=== PATIENT | male | born 1950 | race Caucasian/White ===

== ENCOUNTER 2018-05-08 15:57 | Emergency (ER) | payer MEDICARE, MEDICAID ==
[~2018-05-08] VITALS: Ht 170.2 cm; Wt 66.0 kg
[2018-05-08 16:00] VITALS: BP 173/85
--- NOTE | 2018-05-08 16:14 | NUR ---
PT BIB [facility] FROM [facility]. PT HAD A GLF AND FELL TO HIS KNEES. PT DID NOT HIT HIS HEAD OR HAVE LOC. PT DENIES HAVING ANY SYMPTOMS. PT HAS HAD 1 BEER TODAY AND NEEDS A PLACE TO LIVE. FS: 108, BP: 170/90, HR 110, O2 SAT 100%. PT HAS A HISTORY OF HTN, HIGH CHOLESTEROL, AND STROKE WITH NO DEFFICITS. PT IS ALERT, ORIENTED, WITH NAD. PT IS CONNECTED TO THE MONITOR. CALL LIGHT WITHIN REACH. PA AT BEDSIDE.
[2018-05-08] MEDS ORDERED: SIMV40TA3 PO (16:17)
[2018-05-08] MEDS ORDERED: METO25TA35 PO (16:17)
[2018-05-08] MEDS ORDERED: AMLO10TA8 PO (16:17)
[2018-05-08] MEDS ORDERED: LISI-170 PO (16:17)
[2018-05-08] MEDS ORDERED: SERT50TA28 PO (16:17)
--- NOTE | 2018-05-08 17:06 | NUR ---
Patient given discharge instructions and they have confirmed that they understand the instructions. Patient ambulatory with steady gait.
[2018-05-09] MEDS ORDERED: CLOP75TA52 PO (16:00)
[2018-05-13] MEDS ORDERED: THIA100T27 PO (14:37)
[2018-05-13] MEDS ORDERED: MULT-730 PO (14:37)
[2018-05-13] MEDS ORDERED: ERGO500017 PO (14:43)
== END 2018-05-08 17:08 | disposition home or self-care (01) ==
LOC: ED 16:41
DX: F10.120 Alcohol abuse with intoxication, uncomplicated (principal); E78.00 Pure hypercholesterolemia, unspecified; I25.2 Old myocardial infarction; I10 Essential (primary) hypertension
CPT/HCPCS: 99283

== ENCOUNTER 2018-06-07 18:08 | Emergency (ER) | payer MEDICARE, MEDICAID ==
[~2018-06-07] VITALS: Ht 170.2 cm; Wt 75.0 kg
[~2018-06-07 18:08] MED LIST: AMLO10TA8 PO; CLOP75TA52 PO; ERGO500017 PO; LISI-170 PO; METO25TA35 PO; MULT-730 PO; SERT50TA28 PO; SIMV40TA3 PO; THIA100T27 PO
--- NOTE | 2018-06-07 18:25 | NUR ---
pt malik, report received from [facility]. diarrhea x 1 month; seen here and [facility] since onset. pt is nonambulatory at baseline. pt denies pain. denies hematochezia. pt attached to spo2/bp monitors. special contact precautions in place. awaiting MD and orders at this time. Addendum: 06/07/18 at 1834 by JOSH pt malik, report received from [facility]. diarrhea and generalized abd pain x 1 month; seen here and [facility] since onset. pt is nonambulatory at baseline. pt denies pain at this time. denies hematochezia. pt attached to spo2/bp monitors. special contact precautions in place. awaiting MD and orders at this time.
[2018-06-07 18:43] LABS: BASOPHILS # (AUTO) 0.06 x10^3/uL (0-0.1); BASOPHILS % (AUTO) 1 % (0-1); EOSINOPHILS # (AUTO) 0.03 x10^3/uL (0-0.4); EOSINOPHILS % (AUTO) 0 % (1-7); LYMPHOCYTES # (AUTO) 0.56 x10^3/uL (1-3.4); LYMPHOCYTES % (AUTO) 5 % (22-44); MD NO; MEAN CORPUSCULAR HGB CONC 34.2 g/dL (33.2-36.2); MEAN CORPUSCULAR VOLUME 96.5 fL (81-97); MEAN PLATELET VOLUME 7.6 fL (7.4-10.4); MONOCYTES % (AUTO) 5 % (2-9); NEUTROPHILS # (AUTO) 9.62 x10^3/uL (1.8-6.8); NEUTROPHILS % (AUTO) 89 % (42-75); PLATELET COUNT 394 x10^3/uL (130-400); RED BLOOD COUNT 3.17 x10^6/uL (4.38-5.82); RED CELL DISTRIBUTION WIDTH 13.8 % (9.4-14.8)
--- NOTE | 2018-06-07 18:43 | NUR ---
pt unable to recall home meds for med rec at this time
[2018-06-07 18:55] LABS: ALANINE AMINOTRANSFERASE 18 U/L (12-78); ALBUMIN 3.1 g/dL (3.4-5.0); ANION GAP 6 mmol/L (5-15); CALCIUM 8.7 mg/dL (8.5-10.1); CHLORIDE 103 mmol/L (98-107); CREATININE 1.84 mg/dL (0.7-1.3)
[2018-06-07 18:57] LABS: ALKALINE PHOSPHATASE 75 U/L (45-117); BILIRUBIN,TOTAL 0.4 mg/dL (0.2-1.0); TOTAL PROTEIN 7.1 g/dL (6.4-8.2)
--- NOTE | 2018-06-07 18:59 | NUR ---
report to HOWARD Calle
--- NOTE | 2018-06-07 19:38 | NUR ---
report taken from emmanuel danielle.
[2018-06-07 20:02] VITALS: BP 136/78
--- NOTE | 2018-06-07 20:16 | NUR ---
pt given dc instructions and taxi voucher. pt discharged in own wheelchair, wheelchair cab called to collect pt. pt a&o, resps even and unlabored, nadn at in. the patient did not have any bm during this visit.
== END 2018-06-07 20:17 | disposition home or self-care (01) ==
LOC: ED 18:55
DX: R19.7 Diarrhea, unspecified (principal); E78.00 Pure hypercholesterolemia, unspecified; I25.2 Old myocardial infarction; I10 Essential (primary) hypertension
CPT/HCPCS: 36415; 74021; 80053; 83690; 85025; 99284

== ENCOUNTER 2018-06-11 14:51 | Emergency (ER) | payer MEDICARE, MEDICAID ==
[~2018-06-11] VITALS: Ht 170.2 cm; Wt 60.0 kg
[2018-06-11 15:42] LABS: BASOPHILS # (AUTO) 0.06 x10^3/uL (0-0.1); BASOPHILS % (AUTO) 1 % (0-1); EOSINOPHILS # (AUTO) 0.04 x10^3/uL (0-0.4); EOSINOPHILS % (AUTO) 1 % (1-7); LYMPHOCYTES % (AUTO) 9 % (22-44); MD NO; MEAN CORPUSCULAR HEMOGLOBIN 31.9 pg (27.5-34.5); MEAN CORPUSCULAR HGB CONC 33.2 g/dL (33.2-36.2); MEAN CORPUSCULAR VOLUME 96.1 fL (81-97); MEAN PLATELET VOLUME 7.8 fL (7.4-10.4); MONOCYTES # (AUTO) 0.66 x10^3/uL (0.2-0.8); MONOCYTES % (AUTO) 8 % (2-9); NEUTROPHILS # (AUTO) 6.54 x10^3/uL (1.8-6.8); NEUTROPHILS % (AUTO) 82 % (42-75); PLATELET COUNT 359 x10^3/uL (130-400); RED BLOOD COUNT 3.19 x10^6/uL (4.38-5.82); RED CELL DISTRIBUTION WIDTH 13.9 % (9.4-14.8)
[2018-06-11 15:50] LABS: ALBUMIN 3.1 g/dL (3.4-5.0); ANION GAP 9 mmol/L (5-15); CALCIUM 8.4 mg/dL (8.5-10.1); CHLORIDE 100 mmol/L (98-107)
[2018-06-11 15:57] LABS: ALANINE AMINOTRANSFERASE 15 U/L (12-78); ALKALINE PHOSPHATASE 77 U/L (45-117); BILIRUBIN,TOTAL 0.7 mg/dL (0.2-1.0); CREATININE 1.62 mg/dL (0.7-1.3); TOTAL PROTEIN 7.2 g/dL (6.4-8.2); TROPONIN I < 0.015 ng/mL (0.000-0.045)
--- NOTE | 2018-06-11 17:33 | NUR ---
FROM LOBBY TO ROOM AT THIS TIME
--- NOTE | 2018-06-11 19:11 | NUR ---
RESTING BED COMFORTABLY. GIVEN ADDITIONAL BLANKET AND WATER/CRACKERS. ASKING FOR "HOT FOOD AND CAN YOU JUST KEEP ME SO I CAN REST ENOUGH TO CATCH MY BREATH." PROVIDER MADE AWARE
[2018-06-11 19:22] LABS: HCT (SEDRATE) 29.8 % (39.2-51.8)
--- NOTE | 2018-06-11 21:19 | NUR ---
[employer] PROVIDED TO [address]
[2018-06-11 21:25] VITALS: BP 154/73
== END 2018-06-11 21:28 | disposition home or self-care (01) ==
LOC: ED 20:56
DX: M48.54XA Collapsed vertebra, not elsewhere classified, thoracic region, initial encounter for fracture (principal); M54.5 Low back pain; N18.9 Chronic kidney disease, unspecified; M79.604 Pain in right leg; E78.00 Pure hypercholesterolemia, unspecified; I25.2 Old myocardial infarction; I12.9 Hypertensive chronic kidney disease with stage 1 through stage 4 chronic kidney disease, or unspecified chronic kidney disease
CPT/HCPCS: 36415; 71045; 72072; 72110; 72128; 72131; 80053; 83880; 84484; 85025; 85651; 86140; 86141; 93005; 99284

== ENCOUNTER 2018-07-11 15:44 | Inpatient (IN) | payer MEDICARE, MEDICAID ==
[~2018-07-11] VITALS: Ht 170.2 cm; Wt 63.4 kg
--- NOTE | 2018-07-11 15:54 | NUR ---
no answer x 1
[2018-07-11] MEDS ORDERED: AMLO-150 PO (16:13)
[2018-07-11] MEDS ORDERED: SIMV5TAB14 PO (16:13)
--- NOTE | 2018-07-11 16:23 | NUR ---
PT'S BELONGINGS BY BEDSIDE: OWN WHEELCHAIR AND BAGS WITH CLOTHES.
--- NOTE | 2018-07-11 16:51 | NUR ---
PT INCONTINENT OF URINE AND BOWEL. RN CHANGED PAD UNDER PT.
--- NOTE | 2018-07-11 17:08 | NUR ---
ERMD AT BEDSIDE.
[2018-07-11] MEDS ORDERED: SODIUM CHLORIDE FLUSH 10ML SYR IVF ONE (17:30)
[2018-07-11] MEDS ORDERED: SODIUM CHLORIDE 0.9% 1,000ML IVBOLUS ONE (17:30)
--- NOTE | 2018-07-11 17:30 | NUR ---
LAB AT BEDSIDE OBTAINING BLOOD.
[2018-07-11 17:48] LABS: BASOPHILS # (AUTO) 0.04 x10^3/uL (0-0.1); BASOPHILS % (AUTO) 1 % (0-1); EOSINOPHILS % (AUTO) 0 % (1-7); LYMPHOCYTES # (AUTO) 0.44 x10^3/uL (1-3.4); LYMPHOCYTES % (AUTO) 5 % (22-44); MD NO; MEAN CORPUSCULAR HEMOGLOBIN 31.8 pg (27.5-34.5); MEAN CORPUSCULAR HGB CONC 34.1 g/dL (33.2-36.2); MEAN CORPUSCULAR VOLUME 93.2 fL (81-97); MEAN PLATELET VOLUME 8.2 fL (7.4-10.4); MONOCYTES # (AUTO) 0.58 x10^3/uL (0.2-0.8); MONOCYTES % (AUTO) 7 % (2-9); NEUTROPHILS # (AUTO) 7.75 x10^3/uL (1.8-6.8); NEUTROPHILS % (AUTO) 88 % (42-75); PLATELET COUNT 181 x10^3/uL (130-400); RED BLOOD COUNT 3.14 x10^6/uL (4.38-5.82); RED CELL DISTRIBUTION WIDTH 13.9 % (9.4-14.8)
[2018-07-11 17:49] LABS: INTERNATIONAL NORMALIZED RATIO 0.98 (0.93-1.1); PROTHROMBIN TIME 10.3 Seconds (9.6-11.5)
[2018-07-11 17:51] LABS: ALANINE AMINOTRANSFERASE 14 U/L (12-78); ALBUMIN 2.7 g/dL (3.4-5.0); ANION GAP 6 mmol/L (5-15); CALCIUM 8.2 mg/dL (8.5-10.1); CHLORIDE 102 mmol/L (98-107); CREATININE 1.85 mg/dL (0.7-1.3)
[2018-07-11 17:54] LABS: ALKALINE PHOSPHATASE 75 U/L (45-117); BILIRUBIN,TOTAL 1.5 mg/dL (0.2-1.0); TOTAL PROTEIN 6.5 g/dL (6.4-8.2)
[2018-07-11] MEDS ORDERED: PIPERACILLIN/TAZO/PMX 3.375GM 50 ML ONE (17:54)
[2018-07-11] MEDS ORDERED: PIPERACILLIN/TAZO/PMX 3.375GM 50 ML IV ONE (18:00)
--- NOTE | 2018-07-11 18:03 | NUR ---
OKAY BY [facility] TO PROVIDE PT WITH PO FLUIDS. JUICE WAS PROVIDED PER REQUEST. RN ADMINISTERED ABX PER EMAR. / BLOOD CULTURES WERE OBTAINED. CONTINOUS VITAL SIGN MONITORING. AWAITING URINE SAMPLE. NO OTHER NEEDS AT THIS TIME. RN TO CONTINUE TO MONITOR.
--- NOTE | 2018-07-11 18:25 | NUR ---
PT ASLEEP ON [facility].
--- NOTE | 2018-07-11 18:48 | NUR ---
PT ABLE TO PROVIDE RN WITH A URINE SAMPLE. COLLECTED AND SENT TO LAB. ADDITIONAL WARM BLANKETS PROVIDED TO PT. AWAITING NOC RN FOR SHIFT REPORT.
--- NOTE | 2018-07-11 18:57 | NUR ---
REPORT TO HOWARD FLOR.
--- NOTE | 2018-07-11 19:00 | NUR ---
RECEIVED BS REPORT FROM HOWARD NAVA TO ASSUME PT. CARE. PT. RESTING ON GURNEY WITH NADN. ALL MONITORS IN PLACE. CALL LIGHT IN REACH. AWAITING DISPO.
[2018-07-11 19:04] LABS: MICROSCOPIC AUTO
[2018-07-11 19:07] LABS: CULTURE INDICATED? NO
--- NOTE | 2018-07-11 19:49 | NUR ---
DR. JIMENEZ AT TO COLLECT FLU SWAB AND DISCUSS FURTHER POC WITH PT.
--- NOTE | 2018-07-11 19:59 | NUR ---
[facility] IN TO EVAL PT. FOR ADMISSION.
[2018-07-11 20:23] LABS: RAPID INFLUENZA A Negative (Negative); RAPID INFLUENZA B Negative (Negative)
--- NOTE | 2018-07-11 20:35 | NUR ---
PT. CONTINUES RESTING ON [employer] WITH NADN. TV ON. VS UPDATED. ALL MONITORS IN PLACE. CALL LIGHT.
--- NOTE | 2018-07-11 21:09 | NUR ---
REPORT TO HOWARD MONTENEGRO TO ASSUME PT. CARE.
[2018-07-11 22:00] VITALS: BP 172/90
[2018-07-12 01:34] VITALS: BP 152/78
[2018-07-12] MEDS ORDERED: LABETALOL 5MG/ML, 20ML IVPush PRN (02:00)
[2018-07-12] MEDS ORDERED: CIPROFLOXACIN/PMX 400MG/200ML 200 ML IVPB SCH (02:00)
[2018-07-12] MEDS ORDERED: ZOSYN PER PHARMACY MC PRN (02:00)
[2018-07-12] MEDS ORDERED: ONDANSETRON 2MG/ML, 2ML IVPush PRN (02:00)
[2018-07-12] MEDS ORDERED: PHARMACY MAY ADJ FOR RENAL FX MC PRN (02:00)
[2018-07-12] MEDS: HEPARIN 5,000 UNITS/ML, 1ML SQ SCH ×3 (02:49→18:10)
[2018-07-12] MEDS: PIPERACILLIN/TAZO/PMX 3.375GM 50 ML IV SCH ×4 (04:09→21:17)
[2018-07-12] MEDS: POTASSIUM CHLORIDE 20 MEQ, MAGNESIUM SULFATE 2 GM, THIAMINE 200 MG, MVI ADULT 10 ML, FO... IV SCH (04:59)
[2018-07-12 07:44] VITALS: BP 158/80
[2018-07-12 12:35] VITALS: BP 164/82
[2018-07-12] MEDS ORDERED: LORazepam 2 MG/ML, 1ML IVPush PRN (18:00)
[2018-07-12 20:14] VITALS: BP 174/88
[2018-07-13] VITALS (7 sets, daily range): BP systolic 159–173; BP diastolic 73–89
[2018-07-13] MEDS: HEPARIN 5,000 UNITS/ML, 1ML SQ SCH ×3 (02:27→18:42)
[2018-07-13] MEDS: PIPERACILLIN/TAZO/PMX 3.375GM 50 ML IV SCH ×4 (02:28→21:41)
[2018-07-13] MEDS: LABETALOL 5 MG/ML SYRINGE IVPush PRN ×3 (03:33→16:24)
[2018-07-13] MEDS: POTASSIUM CHLORIDE 20 MEQ, MAGNESIUM SULFATE 2 GM, THIAMINE 200 MG, MVI ADULT 10 ML, FO... IV SCH (05:03)
[2018-07-13 07:26] LABS: BASOPHILS # (AUTO) 0.02 x10^3/uL (0-0.1); BASOPHILS % (AUTO) 0 % (0-1); EOSINOPHILS # (AUTO) 0.11 x10^3/uL (0-0.4); EOSINOPHILS % (AUTO) 2 % (1-7); LYMPHOCYTES # (AUTO) 0.42 x10^3/uL (1-3.4); LYMPHOCYTES % (AUTO) 7 % (22-44); MD NO; MEAN CORPUSCULAR HEMOGLOBIN 31.5 pg (27.5-34.5); MEAN CORPUSCULAR HGB CONC 34.1 g/dL (33.2-36.2); MEAN CORPUSCULAR VOLUME 92.3 fL (81-97); MEAN PLATELET VOLUME 8.4 fL (7.4-10.4); MONOCYTES # (AUTO) 0.49 x10^3/uL (0.2-0.8); MONOCYTES % (AUTO) 8 % (2-9); NEUTROPHILS # (AUTO) 4.86 x10^3/uL (1.8-6.8); NEUTROPHILS % (AUTO) 82 % (42-75); PLATELET COUNT 200 x10^3/uL (130-400); RED BLOOD COUNT 2.94 x10^6/uL (4.38-5.82); RED CELL DISTRIBUTION WIDTH 14.4 % (9.4-14.8)
[2018-07-13 07:37] LABS: ANION GAP 7 mmol/L (5-15); CHLORIDE 107 mmol/L (98-107); CREATININE 1.76 mg/dL (0.7-1.3)
[2018-07-13 10:45] LABS: CLOSTRIDIUM DIFFICILE ANTIGEN NEGATIVE; CLOSTRIDIUM DIFFICILE TOXIN NEGATIVE (Negative)
[2018-07-14 02:00] VITALS: BP 161/85
[2018-07-14] MEDS: HEPARIN 5,000 UNITS/ML, 1ML SQ SCH ×3 (03:08→16:25)
[2018-07-14] MEDS: PIPERACILLIN/TAZO/PMX 3.375GM 50 ML IV SCH (03:08)
[2018-07-14 05:32] LABS: ANION GAP 10 mmol/L (5-15); CALCIUM 7.7 mg/dL (8.5-10.1); CHLORIDE 109 mmol/L (98-107)
[2018-07-14 05:33] LABS: CREATININE 2.03 mg/dL (0.7-1.3)
[2018-07-14 05:44] LABS: BASOPHILS # (AUTO) 0.02 x10^3/uL (0-0.1); BASOPHILS % (AUTO) 0 % (0-1); EOSINOPHILS # (AUTO) 0.16 x10^3/uL (0-0.4); EOSINOPHILS % (AUTO) 3 % (1-7); LYMPHOCYTES # (AUTO) 0.51 x10^3/uL (1-3.4); LYMPHOCYTES % (AUTO) 8 % (22-44); MD NO; MEAN CORPUSCULAR HEMOGLOBIN 30.9 pg (27.5-34.5); MEAN CORPUSCULAR HGB CONC 33.7 g/dL (33.2-36.2); MEAN CORPUSCULAR VOLUME 91.6 fL (81-97); MEAN PLATELET VOLUME 8.3 fL (7.4-10.4); MONOCYTES # (AUTO) 0.44 x10^3/uL (0.2-0.8); MONOCYTES % (AUTO) 7 % (2-9); NEUTROPHILS % (AUTO) 82 % (42-75); PLATELET COUNT 226 x10^3/uL (130-400); RED BLOOD COUNT 2.96 x10^6/uL (4.38-5.82); RED CELL DISTRIBUTION WIDTH 14.2 % (9.4-14.8)
[2018-07-14] MEDS: POTASSIUM CHLORIDE 20 MEQ, MAGNESIUM SULFATE 2 GM, THIAMINE 200 MG, MVI ADULT 10 ML, FO... IV SCH (05:57)
[2018-07-14 07:28] VITALS: BP 185/96
[2018-07-14] MEDS ORDERED: POTASSIUM CHLORIDE 20 MEQ TAB.ER.PRT PO ONE (07:30)
[2018-07-14] MEDS: SODIUM CHLORIDE 0.9% 1,000 ML IV SCH ×2 (07:30→15:30)
[2018-07-14] MEDS: GUAIFENESIN 200 MG TABLET PO SCH ×4 (08:14→20:43)
[2018-07-14] MEDS: AMOXICILLIN/CLAV 875-125MG TABLET PO SCH ×2 (08:15→20:43)
[2018-07-14] MEDS: SERTRALINE 50MG TABLET PO SCH (08:15)
[2018-07-14] MEDS: CLOPIDOGREL 75 MG TABLET PO SCH (08:15)
[2018-07-14] MEDS: DOXYCYCLINE 100MG TABLET PO SCH ×2 (08:15→20:43)
[2018-07-14] MEDS ORDERED: METOPROLOL TARTRATE 25 MG TABLET PO SCH (09:00)
[2018-07-14] MEDS ORDERED: AMLODIPINE 5 MG TABLET PO SCH (09:00)
[2018-07-14 12:30] VITALS: BP 140/89
[2018-07-14 20:00] VITALS: BP 184/95
[2018-07-14] MEDS: SIMVASTATIN 10 MG TABLET PO SCH (20:44)
[2018-07-14] MEDS ORDERED: LOPERAMIDE 2 MG CAPSULE PO ONE (21:00)
[2018-07-15 00:16] VITALS: BP 172/84
[2018-07-15] MEDS: SODIUM CHLORIDE 0.9% 1,000 ML IV SCH ×2 (00:27→07:30)
[2018-07-15] MEDS: HEPARIN 5,000 UNITS/ML, 1ML SQ SCH ×3 (02:11→16:07)
[2018-07-15] MEDS: POTASSIUM CHLORIDE 20 MEQ, MAGNESIUM SULFATE 2 GM, THIAMINE 200 MG, MVI ADULT 10 ML, FO... IV SCH (05:47)
[2018-07-15] MEDS: GUAIFENESIN 200 MG TABLET PO SCH ×4 (05:47→20:51)
[2018-07-15 06:28] LABS: BASOPHILS # (AUTO) 0.03 x10^3/uL (0-0.1); BASOPHILS % (AUTO) 1 % (0-1); EOSINOPHILS # (AUTO) 0.12 x10^3/uL (0-0.4); EOSINOPHILS % (AUTO) 2 % (1-7); LYMPHOCYTES # (AUTO) 0.45 x10^3/uL (1-3.4); LYMPHOCYTES % (AUTO) 8 % (22-44); MD NO; MEAN CORPUSCULAR HEMOGLOBIN 31.3 pg (27.5-34.5); MEAN CORPUSCULAR HGB CONC 34.3 g/dL (33.2-36.2); MEAN CORPUSCULAR VOLUME 91.3 fL (81-97); MEAN PLATELET VOLUME 7.9 fL (7.4-10.4); MONOCYTES # (AUTO) 0.41 x10^3/uL (0.2-0.8); MONOCYTES % (AUTO) 7 % (2-9); NEUTROPHILS # (AUTO) 5.06 x10^3/uL (1.8-6.8); NEUTROPHILS % (AUTO) 83 % (42-75); PLATELET COUNT 240 x10^3/uL (130-400); RED BLOOD COUNT 2.99 x10^6/uL (4.38-5.82); RED CELL DISTRIBUTION WIDTH 14.6 % (9.4-14.8)
[2018-07-15 06:46] LABS: CHLORIDE 112 mmol/L (98-107)
[2018-07-15 06:56] VITALS: BP 160/75
[2018-07-15 06:56] LABS: ALANINE AMINOTRANSFERASE 15 U/L (12-78); ALBUMIN 2.2 g/dL (3.4-5.0); ALKALINE PHOSPHATASE 46 U/L (45-117); ANION GAP 8 mmol/L (5-15); BILIRUBIN,TOTAL 0.7 mg/dL (0.2-1.0); CREATININE 1.63 mg/dL (0.7-1.3); TOTAL PROTEIN 5.9 g/dL (6.4-8.2)
[2018-07-15] MEDS: AMOXICILLIN/CLAV 875-125MG TABLET PO SCH ×2 (09:20→20:51)
[2018-07-15] MEDS: DOXYCYCLINE 100MG TABLET PO SCH ×2 (09:21→20:51)
[2018-07-15] MEDS: METOPROLOL TARTRATE 25 MG TABLET PO SCH ×2 (09:21→20:51)
[2018-07-15] MEDS: AMLODIPINE 5 MG TABLET PO SCH (09:21)
[2018-07-15] MEDS: CLOPIDOGREL 75 MG TABLET PO SCH (09:21)
[2018-07-15] MEDS: SERTRALINE 50MG TABLET PO SCH (09:22)
[2018-07-15 13:48] VITALS: BP 147/82
[2018-07-15 20:02] VITALS: BP 155/77
[2018-07-15] MEDS: SIMVASTATIN 10 MG TABLET PO SCH (20:51)
[2018-07-16 02:44] VITALS: BP 152/70
[2018-07-16] MEDS: HEPARIN 5,000 UNITS/ML, 1ML SQ SCH (05:19)
[2018-07-16] MEDS: GUAIFENESIN 200 MG TABLET PO SCH ×2 (05:19→11:34)
[2018-07-16] MEDS: SODIUM CHLORIDE 0.9% 1,000 ML IV SCH (05:19)
[2018-07-16 05:48] LABS: BASOPHILS # (AUTO) 0.02 x10^3/uL (0-0.1); BASOPHILS % (AUTO) 0 % (0-1); EOSINOPHILS # (AUTO) 0.23 x10^3/uL (0-0.4); EOSINOPHILS % (AUTO) 4 % (1-7); LYMPHOCYTES # (AUTO) 0.51 x10^3/uL (1-3.4); LYMPHOCYTES % (AUTO) 9 % (22-44); MD NO; MEAN CORPUSCULAR HGB CONC 34.1 g/dL (33.2-36.2); MEAN PLATELET VOLUME 7.6 fL (7.4-10.4); MONOCYTES # (AUTO) 0.42 x10^3/uL (0.2-0.8); MONOCYTES % (AUTO) 8 % (2-9); NEUTROPHILS # (AUTO) 4.44 x10^3/uL (1.8-6.8); NEUTROPHILS % (AUTO) 79 % (42-75); PLATELET COUNT 259 x10^3/uL (130-400); RED BLOOD COUNT 2.82 x10^6/uL (4.38-5.82); RED CELL DISTRIBUTION WIDTH 14.8 % (9.4-14.8)
[2018-07-16 06:03] LABS: ALBUMIN 2.1 g/dL (3.4-5.0); ANION GAP 6 mmol/L (5-15); CALCIUM 7.9 mg/dL (8.5-10.1); CHLORIDE 114 mmol/L (98-107)
[2018-07-16 06:07] LABS: ALANINE AMINOTRANSFERASE 18 U/L (12-78); ALKALINE PHOSPHATASE 49 U/L (45-117); BILIRUBIN,TOTAL 0.6 mg/dL (0.2-1.0); CREATININE 1.72 mg/dL (0.7-1.3); TOTAL PROTEIN 5.5 g/dL (6.4-8.2)
[2018-07-16 07:06] VITALS: BP 149/74
[2018-07-16] MEDS: DOXYCYCLINE 100MG TABLET PO SCH (08:12)
[2018-07-16] MEDS: CLOPIDOGREL 75 MG TABLET PO SCH (08:12)
[2018-07-16] MEDS: SERTRALINE 50MG TABLET PO SCH (08:13)
[2018-07-16] MEDS: AMOXICILLIN/CLAV 875-125MG TABLET PO SCH (08:13)
[2018-07-16] MEDS: AMLODIPINE 5 MG TABLET PO SCH (08:13)
[2018-07-16] MEDS ORDERED: ASPIRIN 81 MG TABLET CHEW PO SCH (09:00)
[2018-07-16] MEDS ORDERED: METOPROLOL TARTRATE 25 MG TABLET PO SCH (09:00)
[2018-07-16] MEDS ORDERED: ASPI-515 PO (10:34)
[2018-07-16] MEDS ORDERED: METO25TA35 PO (10:34)
[2018-07-16] MEDS ORDERED: GUAI200T3 PO (10:34)
[2018-07-16] MEDS ORDERED: AMLO-150 PO (10:34)
[2018-07-16] MEDS ORDERED: DOXY100T PO (10:34)
[2018-07-16] MEDS ORDERED: AMOX1TAB12 PO (10:34)
[2018-07-16] MEDS ORDERED: HYDR-3343 PO (10:34)
== END 2018-07-16 13:15 | DRG 871 ==
LOC: ED 19:45 → EDIP 19:50 → ED 19:53 → 4WST 21:31
PROVIDERS: ADMIT Family Medicine; ATTEND Family Medicine
DX: A41.9 Sepsis, unspecified organism (principal); J18.0 Bronchopneumonia, unspecified organism; E43 Unspecified severe protein-calorie malnutrition; I31.3 Pericardial effusion (noninflammatory); J98.11 Atelectasis; D64.9 Anemia, unspecified; E78.00 Pure hypercholesterolemia, unspecified; E78.5 Hyperlipidemia, unspecified; F10.10 Alcohol abuse, uncomplicated; E87.6 Hypokalemia; I10 Essential (primary) hypertension; I48.0 Paroxysmal atrial fibrillation; N28.9 Disorder of kidney and ureter, unspecified; R32 Unspecified urinary incontinence; Z59.0 Homelessness; I25.2 Old myocardial infarction; Z63.8 Other specified problems related to primary support group; Z79.02 Long term (current) use of antithrombotics/antiplatelets; Z68.21 Body mass index [BMI] 21.0-21.9, adult
CPT/HCPCS: 36415; 71045; 80048; 80053; 81001; 83605; 84145; 85025; 85610; 85730; 87040; 87324; 87400; 89055; 93005; 93306; 96365; G0378; J0744; J1644; J2543; J3411; J3475; J3480; J7042; J7030